=== PATIENT | female | born 1995 | race Caucasian/White ===

== ENCOUNTER 2017-09-09 17:56 | Emergency (ER) | payer OTHER ==
[~2017-09-09] VITALS: Ht 149.9 cm; Wt 59.0 kg
[~2017-09-09 17:56] MED LIST: ALBUTEROL2.5 MG/3 M IH; CIPRO100 MG; GILTUSS COUGH-118 ML PO; IRON1TAB4; SINGULAIR 10MG10 MG PO; SYMBICORT 16010.2 GM IH
== END 2017-09-09 22:19 | disposition home or self-care (01) ==
LOC: ER 17:56
DX: N93.8 Other specified abnormal uterine and vaginal bleeding (principal)